=== PATIENT | male | born 1960 | race Caucasian/White ===

== ENCOUNTER 2021-11-25 20:00 | Inpatient (IN) | payer MEDICARE, SELFPAY ==
[2021-11-25 21:09] VITALS: BMI 32.1
[2021-11-25 21:43] VITALS: BP 150/93; PULSE 73; RESP 20; TEMP 36.5; O2SAT 98
[2021-11-25] MEDS: amlodipine 5 mg Tablet PO (22:34)
[2021-11-25] MEDS: LORazepam 0.5 mg Tablet PO (22:34)
[2021-11-25] MEDS: ARIPiprazole 10 mg Tablet 5 MG PO (22:34)
[2021-11-25] MEDS: atorvastatin 40 mg Tablet PO (22:36)
--- NOTE | 2021-11-25 23:09 | PC.ADMIT ---
[address] [facility] 205 Admission Note: The patient,Tj Hubbard,61 y/o, was given written information regarding hospital policies, unit procedures and contact persons. Patient's smoking status: . Vital Signs - 8 hr 11/25/21 21:43 Temperature 97.7 F Pulse Rate 73 Respiratory Rate 20 H Blood Pressure 150/93 Pulse Oximetry 98 Patient states he came in due to worsening depression. Endorses depression since the age of 12 and states abiout 7-8 years ago it had gotten so bad that he received ECT treatment and significantly improved after that. Patient states he lived in [place] most of his life and lives with his brother and his family because they help take care of him due to his mental issues . When they decided to move to [place] last April he came with them. He said it has been a big adjustment and has had worsening depression since leaving [place] and all his friends. He states he knows its getting really bad, and has only been to see a counselor once since being here and has had several med changes recently. He states his doctor told him to stop Prozac and Wellbutrin and to start Olanzapine and Prozac, and that about a month ago he was on Abillify and it caused him some severe side effects. Patient has been alert and oriented, calm and cooperative, ambulates independently, able to make wants and needs known. Denies current SI, denies ever having AVH/HI.
[2021-11-26 06:00] VITALS: BP 174/92; PULSE 91; RESP 18; TEMP 36.4; O2SAT 99
[2021-11-26] MEDS: lamoTRIgine 25 mg Tablet PO (08:32)
[2021-11-26] MEDS: levothyroxine 88 mcg Tablet PO (08:32)
[2021-11-26] MEDS: amlodipine 5 mg Tablet PO (08:32)
[2021-11-26] MEDS: fluoxetine 20 mg Capsule PO (08:32)
[2021-11-26] MEDS: atorvastatin 40 mg Tablet PO (08:32)
--- NOTE | 2021-11-26 08:33 | P.NPUHP_ITS ---
Providers/Chief Complaint Admitting Physician: Matt Trevino MD Chief Complaint: Psych HPI NPU History of Present Illness Tj Hubbard is a 61 year old male who was admitted to an outside emergency department with the following report: Patient brought to the emergency department by his brother who lives with him.? Patient reports a long history of depression with anxiety/panic attacks.? He states that he is on the verge of losing him.? He states that he takes Ativan as needed at home and last took it last night.? 0.25 mg.? Patient reports thoughts of suicide with no plan.? Patient also endorses irrational fears with his anxiety.? He states that it is hard to turn off his brain at times.? Patient has had multiple admissions for psychiatric care in another state but does not hear in [place].? Last admission to the hospital was for medical reasons last month for hyponatremia.? On the interview patient is alert and oriented x4.? Some thought blocking noted.? Anxiety level 10/10 and depression is the same.? Affect is flat, sad.? Patient admits to feeling overwhelmed and sad.? No history of suicide attempts in the past.? Patient reports depression runs in his family but he got it the worst .? Vital signs are stable.? No physical complaints at this time.? Patient oriented to the unit.? Patient dressed in green scrubs and dressed about by triage techNatali Afffara from the behavioral health financial assistance specialist. Vineet Hubbard is a 61-year-old male who presented to the emergency room via POB for suicidal ideation.? Tj stated that his emotional pain is getting worse and worse.? He endorses suicidal thoughts but does not endorse a plan.? However, Tj reports that he has thoughts of lots of ways to kill himself but does not want that to be the answer.? Vineet has a history of severe major depression, anxiety and PTSD.? He has 4 prior hospitalizations in [place] for his depression and anxiety. Vineet's brother, Shukri Pandya reports Tj has high anxiety when he wakes up and throughout the day it gets worse.? Almost like a shell shock and his mood fluctuates .? He states that his brother has told him that he has a compulsion to kill himself but no desire to, but does not know how long he can hold back, he is tired of the fight . He was admitted to the neuropsychiatry unit for definitive treatment of these is sues. He says that he did well after getting ECT about 7 years ago. He said he asked for it for years and really had to fight to finally get it. He still lives with his brother and his through those years because he still needed their support. He is on disability because of his depression and anxiety. He says that he took many medications before and none of them really helped until the EC T. Since the ECT he says he has been on the same medication up until recently when they were changed. He thinks that he was on Wellbutrin but could not tell me the others. Then later he told me that his doctor had changed him from Abilify and Wellbutrin to Prozac and olanzapine but he had not taken the olanzapine because the pharmacy said that had a lot of interactions. He and his brother and his brother's moved here from [place] last year. He did not really want to move but needed their support. He has a lot of friends in [place]. Initially he was okay but he has been getting progressively more depressed for the last few months and now it is very bad. He says that he did not change his medications until recently. He really wants to get ECT again. The ECT did affect his memory. He also had 3 strokes about 5 years ago and they have expected his memory. He says that he was told that ECT and also TMS was available in [place] but they did not have a bed available. He is not optimistic that medications can work. He was on many medications before the ECT and nothing really worked. He was on lithium and it did not work. He says that his depression started when he was 12 years old. He remembers sitting on his parent's couch and it seemed like he had a horrifying pain and terror like his brain was torn into. He describes extreme mental anguish since that time until he got the ECT. He has been in a lot of therapy but it is not been very helpful. He denies anything happening otherwise when he was 12. He does not remember ever being abused. He does not remember anything terrible happening to him. He describes PTSD from having this mental anguish. Meds NPU Home Medications Medication Instructions Recorded Confirmed Last Taken Type amlodipine 5 mg tablet 5 mg PO DAILY 11/25/21 11/25/21 Unknown History aripiprazole 5 mg tablet 5 mg PO DAILY 11/25/21 11/25/21 Unknown History atorvastatin 40 mg tablet 40 mg PO DAILY 11/25/21 11/25/21 Unknown History bupropion HCl 150 mg 24 hr tablet, 150 mg PO DAILY 11/25/21 11/25/21 Unknown History extended release fluoxetine 20 mg capsule 20 mg PO DAILY 11/25/21 11/25/21 Unknown History lamotrigine 25 mg tablet 25 mg PO DAILY 11/25/21 11/25/21 Unknown History levothyroxine 88 mcg tablet 88 mcg PO DAILY 11/25/21 11/25/21 Unknown History lorazepam 0.5 mg tablet 0.5 mg PO TID 11/25/21 11/25/21 Unknown History Allergies Allergy/AdvReac Type Severity Reaction Status Date / Time No Known Allergies Allergy Verified 11/25/21 22:13 Mental Status Exam MSE Comments: This is a 61-year-old overweight male who appears approximately his stated age and is in no acute distress. He said that his stomach is bothering him and he has difficulty walking very fast. He had to lay down for the interview. He had poor eye contact because he was mostly staring at the ceiling. He has a full shook. psychomotor activity decreased. Speech is at a regular rate and rhythm, normal volume, good articulation, not pressured. Alert, oriented X3 Attention and concentration appear to be okay. Memory is intact Mood is depressed. Affect is moderately dysphoric. Thought process is logical and goal-directed. Thought content: Denies auditory and visual hallucinations. No delusions or paranoia are noted. He denies suicidal ideation but says that it seems inevitable if things do not get better. He has felt like that much of his life. He denies homicidal ideation. Fund of knowledge is average. Insight and judgment appear to be fairly good. Impulse control is fairly good. Vitals/I&O/Wt Last Vital Signs Temp 97.6 F 11/26/21 06:00 Pulse 91 11/26/21 06:00 Resp 18 11/26/21 06:00 BP 174/92 11/26/21 06:00 Pulse Ox 99 11/26/21 06:00 Weight last 48 hrs Weight 104.326 kg Weight 104.326 kg A&P Assessment and plan (1) Major depressive disorder: Status: Acute (2) Suicidal ideation: Status: Acute Plan This is a 61-year-old male who reports lifelong anxiety and depression and the only thing that has really helped has been ECT which worked for about 7 years but now depression is back very strong. Plan: 1. Continue current medication. Will investigate transfer to a facility that can do ECT. 2. Continue every 15 minute checks for safety. 3. Encourage individual, group and milieu therapies. 4. Encourage sober living treatment after discharge at the highest level of care to which he is willing to commit. 5. We will monitor for safety for himself in the community prior to discharge. Involuntary Hold Information 96 Hour Hold: 96 Hour Involuntary Admission: No Attestations NPU Medical Necessity Statement*: Inpatient hospitalization is medically necessary and the clinically appropriate intervention at this time. We will initiate medications and make changes as indicated. He will be in the hospital for over 2 midnights. Likely length of stay 4-6 days Coding Level of Care Code Acute Aerophysics Engineer for Patti Perez Diagnoses Major depressive disorder F32.9 Suicidal ideation R45.851
[2021-11-26] MEDS: buPROPion XL (24 HR) 150 mg Tablet PO (08:53)
[2021-11-26] MEDS: ARIPiprazole 10 mg Tablet 5 MG PO (08:53)
[2021-11-26] MEDS: hyDROXYzine 25 mg Capsule 50 MG PO ×2 (13:52→20:43)
--- NOTE | 2021-11-26 13:53 | PC.NURSE ---
PRN VISTARIL 50 MG GIVEN PO PER PT C/O STATED ANXIETY
[2021-11-26 14:00] VITALS: BP 148/88; PULSE 85; RESP 18; TEMP 37; O2SAT 95
[2021-11-26 20:26] VITALS: BP 123/83; PULSE 79; RESP 18; TEMP 37; O2SAT 97
--- NOTE | 2021-11-26 20:50 | PC.NURSE ---
Pt requested med for anxiety. Stated he'd had a nervous breakdown in the past and felt he was right there on the edge. Vistaril 50mg po was given for anxiety.
[2021-11-26 21:34] VITALS: PULSE 80; RESP 18; O2SAT 96
--- NOTE | 2021-11-26 21:45 | PC.NURSE ---
RT here to place pt on c-pap. MONORAIL HOOKER RE as 1:1 sitter at this time.
[2021-11-27] MEDS: OLANZapine 5 mg ODT PO (00:06)
--- NOTE | 2021-11-27 00:06 | PC.NURSE ---
PATIENT UP TO NURSES STATION STATING ANXIETY HIGH, OLANZAPINE WAS GIVEN 0006.
[2021-11-27 06:00] VITALS: BP 165/93; PULSE 89; RESP 16; TEMP 37; O2SAT 97
[2021-11-27] MEDS: lamoTRIgine 25 mg Tablet PO (08:24)
[2021-11-27] MEDS: amlodipine 5 mg Tablet PO (08:25)
[2021-11-27] MEDS: atorvastatin 40 mg Tablet PO (08:25)
[2021-11-27] MEDS: buPROPion XL (24 HR) 150 mg Tablet PO (08:25)
[2021-11-27] MEDS: fluoxetine 20 mg Capsule PO (08:25)
[2021-11-27] MEDS: levothyroxine 88 mcg Tablet PO (08:27)
--- NOTE | 2021-11-27 11:50 | W.PM.NPUPNS ---
Subjective NPU Subjective: He continues to be very depressed. He is not happy here because there is nothing to do. When he is at home there are things to do. He can do things in the yard. He continues to have suicidal ideation. He was told that we had made arrangements for outpatient ECT for him but I cannot start until late next week. He asked about the TMS. I told him they did not do ECT or TMS in [place] currently. We did not investigate locations for TMS. He had such a good response to ECT previously that that is what I would recommend. He agreed with that. He talked again about the dramatic response that he had to ECT. Mental Status Exam MSE Comments: This is a 61-year-old overweight male who appears approximately his stated age and is in no acute distress. He was lying in bed at 11:30 PM and did not get up. He has a full shook. psychomotor activity decreased. Speech is at a regular rate and rhythm, normal volume, good articulation, not pressured. Alert, oriented X3 Attention and concentration appear to be okay. Memory is intact Mood is depressed. Affect is moderately dysphoric. Thought process is logical and goal-directed. Thought content: Denies auditory and visual hallucinations. No delusions or paranoia are noted. He denies suicidal ideation but says that it seems inevitable if things do not get better. He has felt like that much of his life. He denies homicidal ideation. Fund of knowledge is average. Insight and judgment appear to be fairly good. Impulse control is fairly good. Cognition: Patient Appearance: Appropriate Patient Orientation (long list): Person, Place, Age, Month and Year Comprehension Ability: No Impairment Hallucination Type: None Delusion Description: Not Present Thought Process: Appropriate Affect: Affect Description: Appropriate and Calm Behavior: Patient Behavior: Appropriate and Cooperative Speech Pattern: Appropriate and Clear Vitals/I&O/Wt Last Vital Signs Temp 98.6 F 11/27/21 06:00 Pulse 89 11/27/21 06:00 Resp 16 11/27/21 06:00 BP 165/93 11/27/21 06:00 Pulse Ox 97 11/27/21 06:00 Weight last 48 hrs Weight 104.326 kg Weight 104.326 kg A&P Assessment and plan (1) Major depressive disorder: Status: Acute (2) Suicidal ideation: Status: Acute Plan This is a 61-year-old male who reports lifelong anxiety and depression and the only thing that has really helped has been ECT which worked for about 7 years but now depression is back very strong. Plan: 1. Continue current medication. He said that Abilify caused him to be too energized and we will try Geodon. Will investigate transfer to a facility that can do ECT. 2. Continue every 15 minute checks for safety. 3. Encourage individual, group and milieu therapies. 4. Encourage sober living treatment after discharge at the highest level of care to which he is willing to commit. 5. We will monitor for safety for himself in the community prior to discharge. Involuntary Hold Information 96 Hour Hold: 96 Hour Involuntary Admission: No Attestations NPU Medical Necessity Statement*: Inpatient hospitalization is medically necessary and the clinically appropriate intervention at this time. We will initiate medications and make changes as indicated. Coding Level of Care Code Acute Industrial Tech Instructor for Patti Perez Diagnoses Major depressive disorder F32.9 Suicidal ideation R45.855
[2021-11-27 14:00] VITALS: BP 130/68; PULSE 93; RESP 17; TEMP 37.1; O2SAT 97
--- NOTE | 2021-11-27 14:38 | PC.SOCIAL ---
Patient did not attend group.
[2021-11-27] MEDS: ziprasidone hcl 20 mg Capsule PO (16:07)
[2021-11-27] MEDS: hyDROXYzine 25 mg Capsule 50 MG PO (20:50)
[2021-11-27 21:08] VITALS: BP 128/80; PULSE 84; RESP 17; TEMP 36.6; O2SAT 97
[2021-11-28] MEDS: LORazepam 0.5 mg Tablet PO (03:18)
[2021-11-28 06:00] VITALS: BP 130/83; PULSE 80; RESP 16; TEMP 36.7; O2SAT 96
[2021-11-28] MEDS: ziprasidone hcl 20 mg Capsule PO ×2 (06:09→17:05)
[2021-11-28] MEDS: lamoTRIgine 25 mg Tablet PO (08:33)
[2021-11-28] MEDS: buPROPion XL (24 HR) 150 mg Tablet PO (08:33)
[2021-11-28] MEDS: amlodipine 5 mg Tablet PO (08:33)
[2021-11-28] MEDS: levothyroxine 88 mcg Tablet PO (08:33)
[2021-11-28] MEDS: atorvastatin 40 mg Tablet PO (08:33)
[2021-11-28] MEDS: fluoxetine 20 mg Capsule PO (08:33)
--- NOTE | 2021-11-28 11:03 | W.PM.NPUPNS ---
Subjective NPU Subjective: We have set up for him to have outpatient ECT. That is a relief to him. He still worries that he is going to lose control. He says that it causes him a lot of fear. He does not feel that it is safe for him to go home at this point. He also feels like his mind is not working very clearly. He wanted to make sure that his brother was involved in his treatment planning. Mental Status Exam MSE Comments: This is a 61-year-old overweight male who appears approximately his stated age and is in no acute distress. He was sitting in the day room at 11 AM he is dressed in hospital scrubs. He has a full shook. psychomotor activity decreased. Speech is at a regular rate and rhythm, normal volume, good articulation, not pressured. Alert, oriented X3 Attention and concentration appear to be okay. Memory is intact Mood is depressed. Affect is moderately dysphoric. Thought process is logical and goal-directed. Thought content: Denies auditory and visual hallucinations. No delusions or paranoia are noted. He denies suicidal ideation but says that it seems inevitable if things do not get better. He has felt like that much of his life. He denies homicidal ideation. Fund of knowledge is average. Insight and judgment appear to be fairly good. Impulse control is fairly good. Cognition: Patient Appearance: Appropriate Patient Orientation (long list): Person, Place, Age, Month and Year Comprehension Ability: No Impairment Hallucination Type: None Delusion Description: Not Present Thought Process: Appropriate Affect: Affect Description: Appropriate Behavior: Patient Behavior: Appropriate Speech Pattern: Appropriate Vitals/I&O/Wt Last Vital Signs Temp 98.0 F 11/28/21 06:00 Pulse 80 11/28/21 06:00 Resp 16 11/28/21 06:00 BP 130/83 11/28/21 06:00 Pulse Ox 96 11/28/21 06:00 A&P Assessment and plan (1) Major depressive disorder: Status: Acute (2) Suicidal ideation: Status: Acute Plan This is a 61-year-old male who reports lifelong anxiety and depression and the only thing that has really helped has been ECT which worked for about 7 years but now depression is back very strong. Plan: 1. Continue current medication. He said that Abilify caused him to be too energized and we will try Geodon. We will discharge him when it is safe and he is scheduled for outpatient ECT. 2. Continue every 15 minute checks for safety. 3. Encourage individual, group and milieu therapies. 4. Encourage sober living treatment after discharge at the highest level of care to which he is willing to commit. 5. We will monitor for safety for himself in the community prior to discharge. Involuntary Hold Information 96 Hour Hold: 96 Hour Involuntary Admission: No Attestations NPU Medical Necessity Statement*: Inpatient hospitalization is medically necessary and the clinically appropriate intervention at this time. We will initiate medications and make changes as indicated. Coding Level of Care Code Acute Special Needs Teacher for Patti Louisd Diagnoses Major depressive disorder F32.9 Suicidal ideation R45.856
[2021-11-28 13:59] VITALS: BP 125/77; PULSE 91; RESP 18; TEMP 36.4; O2SAT 97
[2021-11-28 20:58] VITALS: BP 137/88; PULSE 96; RESP 16; TEMP 37.2; O2SAT 96
[2021-11-28] MEDS: docusate sodium 100 mg Capsule PO (21:05)
[2021-11-28] MEDS: trazodone 50 mg Tablet PO ×2 (21:05→23:00)
[2021-11-28] MEDS: hyDROXYzine 25 mg Capsule 50 MG PO (21:05)
[2021-11-29] MEDS: LORazepam 0.5 mg Tablet PO (01:14)
[2021-11-29 06:00] VITALS: BP 118/64; PULSE 81; RESP 18; TEMP 36.6; O2SAT 96
[2021-11-29] MEDS: ziprasidone hcl 20 mg Capsule PO ×2 (06:30→17:07)
[2021-11-29] MEDS: lamoTRIgine 25 mg Tablet PO (10:28)
[2021-11-29] MEDS: buPROPion XL (24 HR) 150 mg Tablet PO (10:28)
[2021-11-29] MEDS: amlodipine 5 mg Tablet PO (10:29)
[2021-11-29] MEDS: atorvastatin 40 mg Tablet PO (10:29)
[2021-11-29] MEDS: levothyroxine 88 mcg Tablet PO (10:29)
[2021-11-29] MEDS: fluoxetine 20 mg Capsule PO (10:30)
--- NOTE | 2021-11-29 13:53 | P.NPUPN_ITS ---
Subjective NPU Subjective: He says that he is afraid he is going to have a nervous breakdown. He has had a few in his life. He feels that he is at the precipice. He feels like he has been at that point for the last few days. He does not feel like he is getting any closer but does not feel like he is getting better like he had hoped. Knowing that the ECT will happen next week has not helped him. He cannot explain that. He continues to have bad emotional pain. He did not sleep very well last night. The nurses told me it was because his room was hot. His room is now fairly cold. He was assured that he is in the hospital and he will be safe and that we will be able to assist him if he does have a nervous breakdown. Mental Status Exam MSE Comments: This is a 61-year-old overweight male who appears a pproximately his stated age and is in no acute distress. He was found in the hallway at 1:30 PM. He is dressed in hospital scrubs. He has a full shook. psychomotor activity decreased. Speech is at a regular rate and rhythm, normal volume, good articulation, not pressured. Alert, oriented X3 Attention and concentration appear to be okay. Memory is intact Mood is depressed. Affect is moderately dysphoric. Thought process is logical and goal-directed. Thought content: Denies auditory and visual hallucinations. No delusions or paranoia are noted. He denies suicidal ideation but says that it seems inevitable if things do not get better. He has felt like that much of his life. He denies homicidal ideation. Fund of knowledge is average. Insight and judgment appear to be fairly good. Impulse control is fairly good. Cognition: Patient Appearance: Appropriate Patient Orientation (long list): Person, Place, Name, Age and Birthday Comprehension Ability: No Impairment Hallucination Type: None Delusion Description: Not Present Thought Process: Appropriate Affect: Affect Description: Flat Behavior: Patient Behavior: Appropriate and Cooperative Speech Pattern: Appropriate and Clear Vitals/I&O/Wt Last Vital Signs Temp 98 F 11/29/21 06:00 Pulse 81 11/29/21 06:00 Resp 18 11/29/21 06:00 BP 118/64 11/29/21 06:00 Pulse Ox 96 11/29/21 06:00 A&P Assessment and plan (1) Major depressive disorder: Status: Acute (2) Suicidal ideation: Status: Acute Plan This is a 61-year-old male who reports lifelong anxiety and depression and the only thing that has really helped has been ECT which worked for about 7 years but now depression is back very strong. Plan: 1. Continue current medication. Increase Geodon to 40 mg twice daily and increase trazodone to 100 mg at bedtime. We will discharge him when it is safe and he is scheduled for outpatient ECT. 2. Continue every 15 minute checks for safety. 3. Encourage individual, group and milieu therapies. 4. Encourage sober living treatment after discharge at the highest level of care to which he is willing to commit. 5. We will monitor for safety for himself in the community prior to discharge. Involuntary Hold Information 96 Hour Hold: 96 Hour Involuntary Admission: No Attestations NPU Medical Necessity Statement*: Inpatient hospitalization is medically necessary and the clinically appropriate intervention at this time. We will initiate medications and make changes as indicated. Coding Level of Care Code Acute Information Assurance for Patti Perez Diagnoses Major depressive disorder F32.9 Suicidal ideation R45.853
[2021-11-29 14:00] VITALS: BP 124/78; PULSE 90; RESP 20; TEMP 36.8; O2SAT 95
[2021-11-29] MEDS: docusate sodium 100 mg Capsule PO (20:39)
[2021-11-29] MEDS: trazodone 50 mg Tablet PO (20:39)
[2021-11-29 20:41] VITALS: BP 119/79; PULSE 84; RESP 18; TEMP 36.8; O2SAT 98
[2021-11-30 06:00] VITALS: BP 146/81; PULSE 83; RESP 17; TEMP 36.7; O2SAT 97
[2021-11-30] MEDS: ziprasidone hcl 20 mg Capsule PO ×2 (06:05→07:37)
[2021-11-30] MEDS: buPROPion XL (24 HR) 150 mg Tablet PO (09:14)
[2021-11-30] MEDS: amlodipine 5 mg Tablet PO (09:14)
[2021-11-30] MEDS: fluoxetine 20 mg Capsule PO (09:14)
[2021-11-30] MEDS: lamoTRIgine 25 mg Tablet PO (09:14)
[2021-11-30] MEDS: levothyroxine 88 mcg Tablet PO (09:14)
[2021-11-30] MEDS: atorvastatin 40 mg Tablet PO (09:14)
--- NOTE | 2021-11-30 13:02 | W.PM.NPUPNS ---
Subjective NPU Subjective: He said that he is doing better. He slept well last night. Today is a good day so far. His brother is out of town until Friday. The patient has an appointment on Friday and then his appointment at [facility] to have ECT on Friday. He has quite if he starts doing acutely worse after he leaves the hospital. He was told that he should go to [facility] in [place] and see if he can get admitted to the geriatric psychiatry unit there. He agreed that was a good plan. He denies side effects from his medications. Mental Status Exam MSE Comments: This is a 61-year-old overweight male who appears approximately his stated age and is in no acute distress. He was found in bed at 1 PM. He is dressed in hospital scrubs. He has a full shook. psychomotor activity decreased. Speech is at a regular rate and rhythm, normal volume, good articulation, not pressured. Alert, oriented X3 Attention and concentration appear to be okay. Memory is intact Mood is depressed but better. Affect is mildly dysphoric. Thought process is logical and goal-directed. Thought content: Denies auditory and visual hallucinations. No delusions or paranoia are noted. He denies suicidal ideation but says that it seems inevitable if things do not get better. He has felt like that much of his life. He denies homicidal ideation. Fund of knowledge is average. Insight and judgment appear to be fairly good. Impulse control is fairly good. Cognition: Patient Appearance: Appropriate Patient Orientation (long list): Person, Place, Name, Age and Birthday Comprehension Ability: No Impairment Hallucination Type: None Delusion Description: Not Present Thought Process: Appropriate Affect: Affect Description: Appropriate Behavior: Patient Behavior: Appropriate and Cooperative Speech Pattern: Appropriate and Clear Vitals/I&O/Wt Last Vital Signs Temp 98.1 F 11/30/21 06:00 Pulse 83 11/30/21 06:00 Resp 17 11/30/21 06:00 BP 146/81 11/30/21 06:00 Pulse Ox 97 11/30/21 06:00 11/29/21 11/30/21 11/30/21 22:59 06:59 14:59 Intake Total 240 / 240 Balance 240 / 240 A&P Assessment and plan (1) Major depressive disorder: Status: Acute (2) Suicidal ideation: Status: Acute Plan This is a 61-year-old male who reports lifelong anxiety and depression and the only thing that has really helped has been ECT which worked for about 7 years but now depression is back very strong. Plan: 1. Continue current medication. Increase Geodon to 40 mg twice daily. increase trazodone to 100 mg. qhs. scheduled for outpatient ECT next week. 2. Continue every 15 minute checks for safety. 3. Encourage individual, group and milieu therapies. 4. Encourage sober living treatment after discharge at the highest level of care to which he is willing to commit. 5. We will monitor for safety for himself in the community prior to discharge. Involuntary Hold Information 96 Hour Hold: 96 Hour Involuntary Admission: No Attestations NPU Medical Necessity Statement*: Inpatient hospitalization is medically necessary and the clinically appropriate intervention at this time. We will initiate medications and make changes as indicated. Coding Level of Care Code Acute Adjustment Clerk for Patti Perez Diagnoses Major depressive disorder F32.9 Suicidal ideation R45.855
[2021-11-30 14:00] VITALS: BP 116/76; PULSE 57; RESP 18; TEMP 36.1; O2SAT 98
[2021-11-30] MEDS: ziprasidone hcl 40 mg Capsule PO (17:17)
[2021-11-30] MEDS: docusate sodium 100 mg Capsule PO (20:36)
[2021-11-30] MEDS: trazodone 50 mg Tablet PO (20:37)
[2021-11-30 20:48] VITALS: BP 115/78; PULSE 91; RESP 18; TEMP 37.3; O2SAT 97
[2021-12-01 06:00] VITALS: BP 146/81; PULSE 84; RESP 19; TEMP 36.7; O2SAT 98
[2021-12-01] MEDS: ziprasidone hcl 40 mg Capsule PO ×2 (06:32→17:03)
[2021-12-01] MEDS: fluoxetine 20 mg Capsule PO (08:15)
[2021-12-01] MEDS: atorvastatin 40 mg Tablet PO (08:15)
[2021-12-01] MEDS: lamoTRIgine 25 mg Tablet PO (08:15)
[2021-12-01] MEDS: levothyroxine 88 mcg Tablet PO (08:15)
[2021-12-01] MEDS: buPROPion XL (24 HR) 150 mg Tablet PO (08:15)
[2021-12-01] MEDS: amlodipine 5 mg Tablet PO (08:15)
--- NOTE | 2021-12-01 09:41 | P.NPUPN_ITS ---
Subjective NPU Subjective: He did not sleep quite as well last night. His depression is a little worse again today but not nearly as bad as it was when he first came in. He says he tries to stay out of bed so that he will sleep as well as possible at night. He agreed to increase his trazodone to 100 mg. Mental Status Exam MSE Comments: This is a 61-year-old overweight male who appears approximately his stated age and is in no acute distress. He was found in bed at 9 AM he is dressed in hospital scrubs. He has a full shook. psychomotor activity decreased. Speech is at a regular rate and rhythm, normal volume, good articulation, not pressured. Alert, oriented X3 Attention and concentration appear to be okay. Memory is intact Mood is depressed but but not as bad as admission Affect is mildly dysphoric. Thought process is logical and goal-directed. Thought content: Denies auditory and visual hallucinations. No delusions or paranoia are noted. He denies suicidal ideation but says that it seems ine vitable if things do not get better. He has felt like that much of his life. He denies homicidal ideation. Fund of knowledge is average. Insight and judgment appear to be fairly good. Impulse control is fairly good. Cognition: Patient Appearance: Appropriate Patient Orientation (long list): Person, Place and Name Comprehension Ability: No Impairment Hallucination Type: None Delusion Description: Not Present Thought Process: Appropriate Affect: Affect Description: Depressed Behavior: Patient Behavior: Appropriate and Cooperative Speech Pattern: Appropriate and Clear Vitals/I&O/Wt Last Vital Signs Temp 98.0 F 12/01/21 06:00 Pulse 84 12/01/21 06:00 Resp 19 H 12/01/21 06:00 BP 146/81 12/01/21 06:00 Pulse Ox 98 12/01/21 06:00 11/30/21 12/01/21 12/01/21 22:59 06:59 14:59 Intake Total 480 / 720 Balance 480 / 720 A&P Assessment and plan (1) Major depressive disorder: Status: Acute (2) Suicidal ideation: Status: Acute Plan This is a 61-year-old male who reports lifelong anxiety and depression and the only thing that has really helped has been ECT which worked for about 7 years but now depression is back very strong. Plan: 1. Continue current medication. Increase Geodon to 40 mg twice daily. increase trazodone to 100 mg. qhs. scheduled for outpatient ECT next week. 2. Continue every 15 minute checks for safety. 3. Encourage individual, group and milieu therapies. 4. Encourage sober living treatment after discharge at the highest level of care to which he is willing to commit. 5. We will monitor for safety for himself in the community prior to discharge. Involuntary Hold Information 96 Hour Hold: 96 Hour Involuntary Admission: No Attestations NPU Medical Necessity Statement*: Inpatient hospitalization is medically necessary and the clinically appropriate intervention at this time. We will initiate medications and make changes as indicated. Coding Level of Care Code Acute Manager Cardiac Cath for Patti Perez Diagnoses Major depressive disorder F32.9 Suicidal ideation R46.741
[2021-12-01 14:00] VITALS: BP 149/80; PULSE 84; RESP 18; TEMP 36.7; O2SAT 98
[2021-12-01 20:10] VITALS: BP 128/75; PULSE 107; RESP 17; TEMP 36.8; O2SAT 95
[2021-12-01] MEDS: trazodone 50 mg Tablet 100 MG PO (20:36)
[2021-12-01] MEDS: docusate sodium 100 mg Capsule PO (20:36)
[2021-12-02] MEDS: hyDROXYzine 25 mg Capsule 50 MG PO (03:24)
--- NOTE | 2021-12-02 03:24 | PC.NURSE ---
Patient woke up with anxiety, requested PRN hydroxyzine, given as ordered.
[2021-12-02 06:00] VITALS: BP 150/83; PULSE 82; RESP 19; TEMP 36.8; O2SAT 97; BMI 32.3
[2021-12-02] MEDS: ziprasidone hcl 40 mg Capsule PO ×2 (06:17→16:29)
[2021-12-02] MEDS: levothyroxine 88 mcg Tablet PO (08:16)
[2021-12-02] MEDS: atorvastatin 40 mg Tablet PO (08:16)
[2021-12-02] MEDS: fluoxetine 20 mg Capsule PO (08:16)
[2021-12-02] MEDS: amlodipine 5 mg Tablet PO (08:16)
[2021-12-02] MEDS: buPROPion XL (24 HR) 150 mg Tablet PO (08:16)
[2021-12-02] MEDS: lamoTRIgine 25 mg Tablet PO (08:16)
--- NOTE | 2021-12-02 08:59 | PC.NURSE ---
REPORTS HE SLEPT WELL LAST NIGHT. DENIES PAIN. STATES, I DON'T HAVE PHYSICAL PAIN BUT I HAV A LOT OF EMOTIONAL PAIN. DENIES HI AND AVH. DOES REPORT HE IS STILL HAVING INTERMITTENT THOUGHTS OF SUICIDE THAT ARE PASSING. DENIES HAVING A PLAN. CONTRACTED FOR SAFETY. STATES HE DOES NOT WANT TO HURT HIMSELF BUT THE EMOTIONAL PAIN IS TOO MUCH TO BARE AT TIME. SUPPORT VOICED. DID REPORT NAUSEA, WAS OFFERED ZOFRAN BUT DECLINES
--- NOTE | 2021-12-02 09:03 | P.NPUPN_ITS ---
Subjective NPU Subjective: He went to sleep quickly with the trazodone 100 mg but unfortunately woke up at about 2:30 AM. He tried to get back to sleep for about 1 hour before asking for Vistaril and finally got back to sleep at 4 PM. He woke up after about 2 hours. He feels depressed today but not as bad as on admission. Mental Status Exam MSE Comments: This is a 61-year-old overweight male who appears approximately his stated age and is in no acute distress. He was found in the day room at 9 AM he is dressed in hospital scrubs. He has a full shook. psychomotor activity decreased. Speech is at a regular rate and rhythm, normal volume, good articulation, not pressured. Alert, oriented X3 Attention and concentration appear to be okay. Memory is intact Mood is depressed but but not as bad as admission Affect is mildly dysphoric. Thought process is logical and goal-directed. Thought content: Denies auditory and visual hallucinations. No delusions or paranoia are noted. He denies suicidal ideation but says that it seems inevitable if things do not get better. He has felt like that much of his life. He denies homicidal ideation. Fund of knowledge is average. Insight and judgment appear to be fairly good. Impulse control is fairly good. Cognition: Patient Appearance: Appears Older than Age Patient Orientation (long list): Person, Place, Time, Name and Age Comprehension Ability: No Impairment Hallucination Type: None Delusion Description: Not Present Thought Process: Circumstantial Affect: Affect Description: Calm and Depressed Behavior: Patient Behavior: Appropriate and Cooperative Speech Pattern: Appropriate and Clear Vitals/I&O/Wt Last Vital Signs Temp 98.2 F 12/02/21 06:00 Pulse 82 12/02/21 06:00 Resp 19 H 12/02/21 06:00 BP 150/83 12/02/21 06:00 Pulse Ox 97 12/02/21 06:00 Weight last 48 hrs Weight 105.233 kg Weight 105.233 kg A&P Assessment and plan (1) Major depressive disorder: Status: Acute (2) Suicidal ideation: Status: Acute Plan This is a 61-year-old male who reports lifelong anxiety and depression and the only thing that has really helped has been ECT which worked for about 7 years but now depression is back very strong. Plan: 1. Continue current medication. Increase Geodon to 40 mg twice daily. increase trazodone to 100 mg qhs. scheduled for outpatient ECT next week. 2. Continue every 15 minute checks for safety. 3. Encourage individual, group and milieu therapies. 4. Encourage sober living treatment after discharge at the highest level of care to which he is willing to commit. 5. We will monitor for safety for himself in the community prior to discharge. Involuntary Hold Information 96 Hour Hold: 96 Hour Involuntary Admission: No Attestations NPU Medical Necessity Statement*: Inpatient hospitalization is medically necessary and the clinically appropriate intervention at this time. We will initiate medications and make changes as indicated. Coding Level of Care Code Acute Case Advocate for Patti Perez Diagnoses Major depressive disorder F32.9 Suicidal ideation R45.713
[2021-12-02 13:16] VITALS: BP 150/95; PULSE 95; RESP 18; TEMP 36.5; O2SAT 98
[2021-12-02] MEDS: LORazepam 0.5 mg Tablet PO (16:29)
--- NOTE | 2021-12-02 16:29 | PC.NURSE ---
PRN ATIVAN 0.5 MG GIVEN PO PER PT C/O STATED ANXIETY
[2021-12-02] MEDS: docusate sodium 100 mg Capsule PO (20:14)
[2021-12-02] MEDS: trazodone 150 mg Tablet PO (20:14)
[2021-12-02 22:00] VITALS: BP 161/90; PULSE 89; RESP 18; TEMP 36.6; O2SAT 97
[2021-12-03] MEDS: ziprasidone hcl 40 mg Capsule PO (05:55)
[2021-12-03 06:00] VITALS: BP 135/82; PULSE 86; RESP 18; TEMP 36.6; O2SAT 97
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
[2021-12-03 08:40] VITALS: BP 135/82; PULSE 86; RESP 18; TEMP 36.6; O2SAT 97
[2021-12-03] MEDS: atorvastatin 40 mg Tablet PO (09:40)
[2021-12-03] MEDS: fluoxetine 20 mg Capsule PO (09:40)
[2021-12-03] MEDS: lamoTRIgine 25 mg Tablet PO (09:40)
[2021-12-03] MEDS: amlodipine 5 mg Tablet PO (09:40)
[2021-12-03] MEDS: buPROPion XL (24 HR) 150 mg Tablet PO (09:40)
[2021-12-03] MEDS: levothyroxine 88 mcg Tablet PO (09:40)
--- NOTE | 2021-12-03 09:48 | PC.NURSE ---
discharged from unit, brother here to pick patient up. discharge papers given to patient, questions answered. all personal belongings given, wished well.
[2021-12-03] MEDS: LORazepam 0.5 mg Tablet PO (09:50)
== END 2021-12-03 09:52 | disposition home or self-care (01) | DRG 881 ==
PROVIDERS: Admitting Provider Psychiatry & Neurology Psychiatry; Visit Provider Psychiatry & Neurology Psychiatry
DX: F32.9 Major depressive disorder, single episode, unspecified (principal); R45.851 Suicidal ideations; F41.9 Anxiety disorder, unspecified; F41.0 Panic disorder [episodic paroxysmal anxiety]; Z81.8 Family history of other mental and behavioral disorders; F43.10 Post-traumatic stress disorder, unspecified; Z86.73 Personal history of transient ischemic attack (TIA), and cerebral infarction without residual deficits
CPT/HCPCS: 94660; 97150; 97165